=== PATIENT | female | born 1960 | race Caucasian/White ===

== ENCOUNTER 2020-08-03 18:30 | Inpatient (IN) ==
[2020-08-03] MEDS ORDERED: AZITHROMYCIN 250 MG TABLET PO ONE (20:00)
[2020-08-03] MEDS ORDERED: AZITHROMYCIN 250 MG TABLET ONE (21:24)
[2020-08-03] MEDS: DEXAMETHASONE SODIUM PHOSP/PF 10 MG/ML VIAL IV SCH (21:31)
[2020-08-03] MEDS: PANTOPRAZOLE SODIUM 40 MG in NORMAL SALINE 100 ML IV SCH (21:32)
[2020-08-03] MEDS: ENOXAPARIN SODIUM 40 MG/0.4 ML SYRG SC SCH (21:32)
--- NOTE | 2020-08-03 21:32 | HP ---
Chief Complaint - Chief Complaint Date of Service: 08/03/20 Time of Service: 21:31 Chief Complaint: Shortness of breath, productive sputum, COVID19 History of Present Illness: Priscila is a 60 yo female that began having cough and fever on 07/24, she was diagnosed with covid19 and treated with prednisone and cough medicine. She reports she continued to have daily fever and cough. In the last 24 hours she has begun having brown productive sputum and more shortness of breath. She presented to [facility] and chest xray showed bilateral infiltrates and she was hypoxic in the 80s. She was placed on oxygen at 3lpm via NC to keep sats above 90%. [facility] had no COVID bed availability and called our facility for admission. Medical History (Last Updated 08/03/20 @ 19:39 by Allyson Rogel RN) delivery affecting Surgical History: Surgical History (Last Updated 08/03/20 @ 19:40 by Allyson Rogel RN) H/O breast biopsy Hx of breast reduction, elective Family History: Family History (Last Updated 08/03/20 @ 19:43 by Allyson Rogel RN) Father Cancer Hypertension Brother Cancer Social History: (Last Updated 08/03/20 @ 19:45 by Allyson Rogel RN) Social History: adopted: No foster care: No daycare: no daycare chcf: No Marital status: lives independently: Yes household members: spouse number of children: 1 caregiver/support person: Yes caregiver/support person comment: parent marital status: current occupational status: employed Review Of Systems (GEN) - Review of Systems Generalized/Overall Review: Present: Chills, Fever. Absent: Weakness EENTM: Present: No Symptoms Reported Respiratory: Present: Cough, Shortness of Breath Cardiac: Absent: Chest Pain, Edema Abdominal: Absent: Nausea, Vomiting, Abdominal Pain Genitourinary: Absent: Burning, Frequency Musculoskeletal: Present: No Symptoms Reported Neurological: Present: No Symptoms Reported Skin: Present: No Symptoms Reported Endocrine: Present: No Symptoms Reported Allergies/Adverse Reactions: Allergies Allergy/AdvReac Type Severity Reaction Status Date / Time Penicillins Allergy Mild Verified 08/03/20 19:46 ciprofloxacin [From Cipro] Allergy Verified 08/03/20 19:46 Home Medications: HOME MEDICATIONS Albuterol Sulfate [Albuterol Sulfate 2.5 MG/0.5ML] 1 vial INHALATION Q4H PRN 08/03/20 [Last Taken Unknown] Atorvastatin Calcium 10 mg PO DAILY 08/03/20 [Last Taken Unknown] Gabapentin 300 mg PO HS 08/03/20 [Last Taken Unknown] Methylphenidate HCl [Ritalin] 20 mg PO BID PRN 08/03/20 [Last Taken Unknown] Montelukast Sodium 10 mg PO DAILY 08/03/20 [Last Taken Unknown] Omeprazole 40 mg PO DAILY 08/03/20 [Last Taken Unknown] Oxybutynin Chloride [Ditropan] 5 mg PO BID 08/03/20 [Last Taken Unknown] Prednisolone 20 mg PO DAILY 08/03/20 [Last Taken 08/03/20 08:00] Vit D3-Vit K/Berberine/Hops 2,000 mg PO DAILY 08/03/20 [Last Taken Unknown] Exam - Exam Vital Signs: Vital Signs - Last Taken Pulse 80 08/03/20 18:51 Resp 18 08/03/20 18:51 BP 149/97 H 08/03/20 18:51 Pulse Ox 100 08/03/20 18:51 Constitutional: Present: Alert, Cooperative, Well nourished ENT Exam: Present: hearing grossly normal Eye Exam: bilateral eye: normal inspection Respiratory: Present: no respiratory distress, crackles - bilateral lateral aspects Cardiovascular/Chest: Present: no murmur, tachycardia Peripheral Pulses: radial (R): 2+, radial (L): 2+ Abdomen: Present: Normal bowel sounds, soft, nontender, no hepatospenomegaly Extremity: Present: normal inspection Skin Exam: Present: normal color, warm/dry, no cyanosis Lymphatic: Present: no adenopathy Neurologic: Present: alert, normal mood/affect, oriented x 3 Appearance: Present: appropriate appearance, appropriate insight Assessment/Plan - Narrative Narrative: Priscila is a 60 yo female with acute respiratory failure requiring 3lpm of oxygen via NC to keep sats >90% due to bilateral bacterial pneumonia secondary to COVID19. Treating with azithromycin, rocephin, IV dexamethason, and oxygen. Will attempt to wean from oxygen. Expect >2 midnights to initiate sneha tment, monitor for response, and wean from oxygen. - Assessment/Plan (1) Acute respiratory failure with hypoxia Problem: Acute (2) Secondary bacterial pneumonia Problem: Acute (3) COVID-19 virus infection Problem: Acute (4) Multiple sclerosis Problem: Acute
[2020-08-04] MEDS: DEXAMETHASONE SODIUM PHOSP/PF 10 MG/ML VIAL IV SCH (09:22)
[2020-08-04] MEDS: ACETAMINOPHEN 500 MG TABLET PO PRN ×2 (09:23→17:57)
[2020-08-04] MEDS: ENOXAPARIN SODIUM 40 MG/0.4 ML SYRG SC SCH (19:38)
[2020-08-04] MEDS: PANTOPRAZOLE SODIUM 40 MG in NORMAL SALINE 100 ML IV SCH (19:38)
[2020-08-04] MEDS: AZITHROMYCIN 250 MG TABLET PO SCH (20:06)
--- NOTE | 2020-08-04 23:22 | PN ---
Subjective - Date and Time Seen Date: 08/04/20 Time: 08:30 Subjective Narrative: Priscila reports feeling the same. Still short of breath and having productive sputum. No fever or chills. Still needing 3lpm of oxygen via NC. Objective - Vitals Vitals: Last Vital Signs Temp 36.4 C 08/04/20 19:00 Pulse 69 08/04/20 19:00 Resp 20 08/04/20 19:00 BP 143/76 08/04/20 19:00 Pulse Ox 100 08/04/20 19:00 - Exam Constitutional: Present: Alert, Oriented x3, Cooperative, No distress ENT Exam: Present: hearing grossly normal Respiratory: Present: crackles - lateral aspect of each lung Cardiovascular/Chest: Present: regular rate, rhythm, no murmur Abdomen: Present: Normal bowel sounds, soft, nontender, nondistended Appearance: Present: appropriate appearance, appropriate insight Eye contact: Present: cooperative, good eye contact, normal speech Thoughts: Present: normal thought pattern, no apparent hallucination Assessment/Plan Plan Narrative: Continue treatment of acute respiratory failure with hypoxia secondary to COVID19 with secondary bacterial infection. Condition is stable. No changes today. Continue azithromycin, rocephin, dexamthasone, and oxygen. Attempt to wean oxygen as able. - Problems/Diagnosis (1) Acute respiratory failure with hypoxia Problem: Acute (2) Secondary bacterial pneumonia Problem: Acute (3) COVID-19 virus infection Problem: Acute (4) Multiple sclerosis Problem: Acute
[2020-08-05] MEDS: ACETAMINOPHEN 500 MG TABLET PO PRN ×4 (03:00→22:35)
[2020-08-05 06:59] LABS: Hematocrit 32.7 % (37.0-47.0); Hemoglobin 10.9 gm/dL (12.5-16.0); Mean Cell Volume 88.1 fl (78-100); Mean Corpuscular Hemoglobin 29.4 pg (27-31); Mean Corpuscular Hgb Conc 33.3 g/dl (32-36); Mean Platelet Volume 10.1 fl (8-12.5); Neutrophil # 10.5 K/mm3 (1.3-6.0); Neutrophil % 81.1 % (42-75.0); Platelet Count 146 K/mm3 (150-450); Red Blood Count 3.71 M/mm3 (4.2-5.4); Red Cell Distribution Width 13.5 % (11.5-14.0)
[2020-08-05 07:18] LABS: Albumin * 2.7 gm/dl (3.4-5.0); Anion Gap 14.5 mmol/L (6.8-13.8); BUN/Creatinine Ratio 18.8 (9.0-21.6); Bilirubin, Total 0.4 mg/dL (0.0-1.1); Ca. Corrected For Albumin 9.5 mg/dL (8.4-10.2); Calcium * 8.8 mg/dL (7.9-10.9); Carbon Dioxide 23.1 mmol/L (24-32.6); Potassium 3.6 mmol/L (3.4-4.6); Total Protein 6.4 gm/dL (6.2-8.2)
[2020-08-05] MEDS: DEXAMETHASONE SODIUM PHOSP/PF 10 MG/ML VIAL IV SCH (08:01)
[2020-08-05] MEDS ORDERED: METHYLPHENIDATE HCL 5 MG TABLET PO PRN (11:26)
[2020-08-05] MEDS ORDERED: KETOROLAC TROMETHAMINE 30 MG/ML VIAL IV ONE (11:28)
--- NOTE | 2020-08-05 11:29 | PN ---
Subjective - Date and Time Seen Date: 08/05/20 Time: 11:29 Objective - Vitals Vitals: Last Vital Signs Temp 37.3 C 08/05/20 10:31 Pulse 59 L 08/05/20 10:31 Resp 17 08/05/20 10:31 BP 148/74 08/05/20 10:31 Pulse Ox 94 08/05/20 10:31 - Abnormal Lab Findings Abnormal Lab Findings: Abnormal Lab Results 08/05/20 08/05/20 Range/Units 06:50 06:50 WBC 13.0 H (4.0-10.5) K/mm3 RBC 3.71 L (4.2-5.4) M/mm3 Hgb 10.9 L (12.5-16.0) gm/dL Hct 32.7 L (37.0-47.0) % Plt Count 146 L (150-450) K/mm3 Immature Gran % (Auto) 1.50 H (0.001-0.429) % Immature Gran # (Auto) 0.20 H (0.000-0.0310) K/mm3 Neutrophils % 81.1 H (42-75.0) % Lymphocytes % 12.2 L (20-51) % Neutrophils # 10.5 H (1.3-6.0) K/mm3 Chloride 107 H (97-106) mmol/L Carbon Dioxide 23.1 L (24-32.6) mmol/L Anion Gap 14.5 H (6.8-13.8) mmol/L Est GFR (Non-Af Amer) 59 L (60-130) mL/min Random Glucose 113 H (70-110) mg/dL Albumin 2.7 L (3.4-5.0) gm/dl
[2020-08-05] MEDS: PANTOPRAZOLE SODIUM 40 MG TABLET.EC PO SCH (14:08)
[2020-08-05] MEDS: ENOXAPARIN SODIUM 40 MG/0.4 ML SYRG SC SCH (21:08)
[2020-08-05] MEDS: GABAPENTIN 300 MG CAPSULE PO SCH (21:08)
[2020-08-05] MEDS: OXYBUTYNIN CHLORIDE 5 MG TABLET PO SCH (21:08)
[2020-08-05] MEDS: AZITHROMYCIN 250 MG TABLET PO SCH (21:08)
--- NOTE | 2020-08-05 23:42 | PN ---
Subjective - Date and Time Seen Date: 08/05/20 Time: 10:35 Subjective Narrative: Resting in bed. Some shortness of breath, cough. Feels achy, has some back pain. Desatted overnight, required non-rebreather to bring sats up. Currently satting well, no fevers. Objective - Review of Systems Generalized/Overall Review: Denies: Weakness, Chills, Fever EENTM: Reports: No Symptoms Reported Respiratory: Reports: Cough, Shortness of Breath Cardiac: Denies: Chest Pain, Edema Abdominal: Denies: Nausea, Vomiting, Abdominal Pain Musculoskeletal Complaints: Reports: Back Pain - Vitals Vitals: Last Vital Signs Temp 36.4 C 08/05/20 21:30 Pulse 70 08/05/20 21:30 Resp 24 H 08/05/20 21:30 BP 139/85 08/05/20 21:30 Pulse Ox 96 08/05/20 21:30 - Abnormal Lab Findings Abnormal Lab Findings: Abnormal Lab Results 08/05/20 08/05/20 Range/Units 06:50 06:50 WBC 13.0 H (4.0-10.5) K/mm3 RBC 3.71 L (4.2-5.4) M/mm3 Hgb 10.9 L (12.5-16.0) gm/dL Hct 32.7 L (37.0-47.0) % Plt Count 146 L (150-450) K/mm3 Immature Gran % (Auto) 1.50 H (0.001-0.429) % Immature Gran # (Auto) 0.20 H (0.000-0.0310) K/mm3 Neutrophils % 81.1 H (42-75.0) % Lymphocytes % 12.2 L (20-51) % Neutrophils # 10.5 H (1.3-6.0) K/mm3 Chloride 107 H (97-106) mmol/L Carbon Dioxide 23.1 L (24-32.6) mmol/L Anion Gap 14.5 H (6.8-13.8) mmol/L Est GFR (Non-Af Amer) 59 L (60-130) mL/min Random Glucose 113 H (70-110) mg/dL Albumin 2.7 L (3.4-5.0) gm/dl - Exam Constitutional: Present: Alert, Oriented x3, Cooperative, Overweight ENT Exam: Present: hearing grossly normal. Absent: nasal congestion, nasal drainage Neck: Present: non-tender, supple Respiratory: Present: lungs clear, normal breath sounds Cardiovascular/Chest: Present: regular rate, rhythm, no murmur Abdomen: Present: soft, nondistended Skin Exam: Present: normal color, warm/dry Appearance: Present: appropriate appearance, appropriate insight Eye contact: Present: cooperative, good eye contact Thoughts: Present: normal thought pattern Assessment/Plan Plan Narrative: Patient currentlty having SOB, hypoxia, cough. Improving. She is on abx for suspected bacterial pna as well. Her sats are improving, will wean as tolerating. Toradol orederd for body aches, pain. Kidney function appropriate. Continue current tx plan, steroids. Nurse to call with questions or concerns. - Problems/Diagnosis (1) COVID-19 virus infection Problem: Acute (2) Acute respiratory failure with hypoxia Problem: Acute (3) Secondary bacterial pneumonia Problem: Acute
[2020-08-06] MEDS: PANTOPRAZOLE SODIUM 40 MG TABLET.EC PO SCH (07:20)
[2020-08-06] MEDS: ACETAMINOPHEN 500 MG TABLET PO PRN ×3 (07:48→20:32)
[2020-08-06] MEDS: ROSUVASTATIN CALCIUM 10 MG TABLET PO SCH (09:01)
[2020-08-06] MEDS: MONTELUKAST SODIUM 10 MG TABLET PO SCH (09:01)
[2020-08-06] MEDS: OXYBUTYNIN CHLORIDE 5 MG TABLET PO SCH ×3 (09:01→20:31)
[2020-08-06] MEDS: DEXAMETHASONE SODIUM PHOSP/PF 10 MG/ML VIAL IV SCH (09:02)
[2020-08-06 09:53] LABS: Hematocrit 34.1 % (37.0-47.0); Hemoglobin 11.1 gm/dL (12.5-16.0); Mean Cell Volume 88.3 fl (78-100); Mean Corpuscular Hemoglobin 28.8 pg (27-31); Mean Corpuscular Hgb Conc 32.6 g/dl (32-36); Mean Platelet Volume 9.8 fl (8-12.5); Neutrophil # 10.1 K/mm3 (1.3-6.0); Neutrophil % 79.7 % (42-75.0); Platelet Count 172 K/mm3 (150-450); Red Blood Count 3.86 M/mm3 (4.2-5.4); Red Cell Distribution Width 13.7 % (11.5-14.0); White Blood Count 12.7 K/mm3 (4.0-10.5)
[2020-08-06 10:07] LABS: Anion Gap 14.4 mmol/L (6.8-13.8); Carbon Dioxide 23.3 mmol/L (24-32.6); Estimated Creat Clear 65.4; Potassium 3.7 mmol/L (3.4-4.6)
[2020-08-06] MEDS: ENOXAPARIN SODIUM 40 MG/0.4 ML SYRG SC SCH ×2 (12:21→23:41)
[2020-08-06] MEDS ORDERED: KETOROLAC TROMETHAMINE 30 MG/ML VIAL IV ONE (16:44)
[2020-08-06] MEDS: AZITHROMYCIN 250 MG TABLET PO SCH (19:39)
[2020-08-06] MEDS: GABAPENTIN 300 MG CAPSULE PO SCH (20:26)
--- NOTE | 2020-08-06 20:39 | PN ---
Subjective - Date and Time Seen Date: 08/06/20 Time: 15:24 Subjective Narrative: Patient has been mildly distressed from a respiratory stand point most of the day. She required a nonrebreather mask to maintain sats but was weaned off of it as tolerated. Currently on 2 L NC sating in mid s. She states that she feels "like crap" but understands this is part of the process. Beside being a little hypoxic (fairly significant this morning) this afternoon, her only other concern is her body aches. Toradol has helped but she would like something more scheduled. Otherwise she has no other concerns and she has been afebrile. Objective - Review of Systems Generalized/Overall Review: Denies: Weakness, Chills, Fever EENTM: Reports: No Symptoms Reported Respiratory: Reports: Cough, Shortness of Breath Cardiac: Denies: Chest Pain, Edema, Palpitations Abdominal: Reports: No Symptoms Reported Genitourinary Symptoms: Reports: No Symptoms Reported Musculoskeletal Complaints: Reports: Back Pain, Other - body aches - Vitals Vitals: Last Vital Signs Temp 36.7 C 08/06/20 19:13 Pulse 61 08/06/20 19:13 Resp 28 H 08/06/20 19:13 BP 164/90 H 08/06/20 19:13 Pulse Ox 95 08/06/20 19:13 - Abnormal Lab Findings Abnormal Lab Findings: Abnormal Lab Results 08/06/20 08/06/20 Range/Units 09:26 09:47 WBC 12.7 H (4.0-10.5) K/mm3 RBC 3.86 L (4.2-5.4) M/mm3 Hgb 11.1 L (12.5-16.0) gm/dL Hct 34.1 L (37.0-47.0) % Immature Gran % (Auto) 2.40 H (0.001-0.429) % Immature Gran # (Auto) 0.31 H (0.000-0.0310) K/mm3 Neutrophils % 79.7 H (42-75.0) % Lymphocytes % 12.0 L (20-51) % Neutrophils # 10.1 H (1.3-6.0) K/mm3 Chloride 107 H (97-106) mmol/L Carbon Dioxide 23.3 L (24-32.6) mmol/L Anion Gap 14.4 H (6.8-13.8) mmol/L BUN 24 H (3-23) mg/dL BUN/Creatinine Ratio 27.0 H (9.0-21.6) - Exam Constitutional: Present: Alert, Oriented x3, Cooperative Respiratory: Present: lungs clear, normal breath sounds, no respiratory distress - currently Cardiovascular/Chest: Present: regular rate, rhythm, no murmur Abdomen: Present: soft, nontender Skin Exam: Present: normal color, warm/dry Neurologic: Present: alert, oriented x 3 Appearance: Present: appropriate appearance, appropriate insight Eye contact: Present: cooperative, good eye contact Thoughts: Present: normal thought pattern, normal mood /affect Assessment/Plan Plan Narrative: Patient with hypoxia this morning, significantly improved currently. Maintaining sats with just o2 via NC. Continue to monitor, administer oxygen as needed to keep sats greater then 92%. Ibuprofen added, scheduled. Continue Tylenol as well for aches/discomfort. She is on rocephen and azithromycin for superimporsed PNA, continue. Repeat CBC and CMP in the AM. She is on lovenox BID as for DVT ppx. Reg diet ordered. Nurse to call with questions or concerns. - Problems/Diagnosis (1) COVID-19 virus infection Problem: Acute (2) Acute respiratory failure with hypoxia Problem: Acute (3) Secondary bacterial pneumonia Problem: Acute
[2020-08-07] MEDS: IBUPROFEN 600 MG TABLET PO PRN ×3 (02:17→20:26)
[2020-08-07] MEDS: ACETAMINOPHEN 500 MG TABLET PO PRN ×2 (04:46→15:10)
[2020-08-07] MEDS: PANTOPRAZOLE SODIUM 40 MG TABLET.EC PO SCH (07:39)
[2020-08-07 08:01] LABS: Hematocrit 34.8 % (37.0-47.0); Hemoglobin 11.4 gm/dL (12.5-16.0); Mean Cell Volume 88.3 fl (78-100); Mean Corpuscular Hemoglobin 28.9 pg (27-31); Mean Corpuscular Hgb Conc 32.8 g/dl (32-36); Platelet Count 213 K/mm3 (150-450); Red Blood Count 3.94 M/mm3 (4.2-5.4); Red Cell Distribution Width 13.5 % (11.5-14.0); White Blood Count 13.7 K/mm3 (4.0-10.5)
[2020-08-07 08:07] LABS: Albumin * 2.5 gm/dl (3.4-5.0); Anion Gap 14.8 mmol/L (6.8-13.8); Bilirubin, Total 0.6 mg/dL (0.0-1.1); Ca. Corrected For Albumin 9.9 mg/dL (8.4-10.2); Carbon Dioxide 23.8 mmol/L (24-32.6); Potassium 3.6 mmol/L (3.4-4.6); Total Protein 6.3 gm/dL (6.2-8.2)
[2020-08-07 08:09] LABS: Total Cells Counted 100
[2020-08-07 08:20] LABS: Lymphocyte 15 % (20-51); Monocyte 4 % (0-9); Neutrophil 81 % (42-75); Neutrophil # 11.1 K/mm3 (1.3-6.0); Platelet Estimate Normal (NORMAL)
[2020-08-07 08:21] LABS: RBC Morphology Normal (NORMAL)
[2020-08-07] MEDS: ROSUVASTATIN CALCIUM 10 MG TABLET PO SCH (08:56)
[2020-08-07] MEDS: MONTELUKAST SODIUM 10 MG TABLET PO SCH (08:56)
[2020-08-07] MEDS: DEXAMETHASONE SODIUM PHOSP/PF 10 MG/ML VIAL IV SCH (08:56)
[2020-08-07] MEDS: OXYBUTYNIN CHLORIDE 5 MG TABLET PO SCH ×2 (09:30→20:01)
[2020-08-07] MEDS: IPRATROPIUM/ALBUTEROL SULFATE 120 PUFF INHALER IH SCH ×3 (10:41→20:48)
[2020-08-07] MEDS: ENOXAPARIN SODIUM 40 MG/0.4 ML SYRG SC SCH ×2 (14:15→23:28)
[2020-08-07] MEDS: AZITHROMYCIN 250 MG TABLET PO SCH (19:31)
[2020-08-07] MEDS: GABAPENTIN 300 MG CAPSULE PO SCH (20:27)
[2020-08-08] MEDS: IPRATROPIUM/ALBUTEROL SULFATE 120 PUFF INHALER IH SCH (04:16)
[2020-08-08] MEDS: PANTOPRAZOLE SODIUM 40 MG TABLET.EC PO SCH (06:40)
[2020-08-08 06:49] VITALS: BP 171/84
--- NOTE | 2020-08-08 08:51 | PN ---
Subjective - Date and Time Seen Date: 08/07/20 Time: 12:00 Subjective Narrative: Priscila is becoming more short of breath and has been placed on simple mask at 7lpm and now 8lpm. No fever, chills, nausea, or vomiting. Objective - Vitals Vitals: Last Vital Signs Selected Entries 08/07/20 10:45 Temperature 36.5 C Pulse Rate 65 Respiratory Rate 20 Blood Pressure 128/75 O2 Sat by Pulse Oximetry 92 L Oxygen Delivery Method Mask (Simple) Oxygen Flow Rate 8 - Exam Constitutional: Present: Alert, Oriented x3, Cooperative ENT Exam: Present: hearing grossly normal Respiratory: Present: crackles - left and right lateral airspace Cardiovascular/Chest: Present: regular rate, rhythm, no murmur Abdomen: Present: Normal bowel sounds, soft, nontender, nondistended Skin Exam: Present: normal color, warm/dry, no cyanosis Assessment/Plan Plan Narrative: Priscila's condition is worsening. She is requiring more oxygen. She has gone from 3lpm yesterday to simple mask requiring now 8lpm. She is on azithromycin, rocephin, dexamethasone. Will try working with cornet, incentive spirometer, and combivent to get improved oxygenation. - Problems/Diagnosis (1) Acute respiratory failure with hypoxia Problem: Acute (2) Secondary bacterial pneumonia Problem: Acute (3) COVID-19 virus infection Problem: Acute (4) Multiple sclerosis Problem: Acute
--- NOTE | 2020-08-08 09:01 | DS ---
Transfer Discharge Summary - Diagnosis(s)/Problems (1) Acute respiratory failure with hypoxia Problem: Acute (2) Secondary bacterial pneumonia Problem: Acute (3) COVID-19 virus infection Problem: Acute (4) Multiple sclerosis Problem: Acute - Course Description of Stay: Priscila is a 60 yo female who first had symptoms of COVID19 on 07/24/20. She was tested on 07/25/20, which ultimately came back positive for COVID19. She did not have shortness of breath and her oxygen levels were normal so she isolated at home. But she began to get more and more short of breath and presented to the [facility] ER and was found to be hypoxic requiring 3lpm of oxygen to keep sats >90%. She had a chest xray there that showed bilateral pneumonia. [facility] did not have any available COVID19 beds at their facility and requested transfer to our facility. She arrived on 3lpm of oxygen via NC. She was treated with azithromycin, rocephin, and IV dexamethasone 6mg daily starting on 08/03/20. She was stable for the first few days remaining on 3lpm, but over the last 24 hours she was advanced to a simple mask gradually needing more oxygen flow. Overnight she has advanced to requiring non-rebreather at 15lpm. She is currently 90% on this, but I have concerns with her rapid decline that she will need more positive pressure ventilation which we are not equipped to deal with for a covid19 patient in our facility. I discussed transfer with Dr. Lee at [facility] who accepted her transfer. Procedures Performed: none - Medications Medications: Active Medications Acetaminophen (Tylenol) 1,000 mg PO Q6H PRN PRN Reason: Mild pain (pain scale 1-3) Stop: 09/03/20 08:12 Last Admin: 08/07/20 15:10 Dose: 1,000 mg Documented by: Albuterol/Ipratropium (Combivent Respimat 20-100 Mcg) 1 puff IH Q6H [facility] Stop: 09/06/20 09:46 Last Admin: 08/08/20 04:16 Dose: 1 puff Documented by: Dexamethasone Sodium Phosphate (Dexamethasone) 6 mg IV DAILY [facility] Stop: 09/02/20 19:01 Last Admin: 08/07/20 08:56 Dose: 6 mg Documented by: Enoxaparin Sodium (Lovenox) 40 mg SC Q12H [facility] Stop: 09/05/20 11:31 Last Admin: 08/07/20 23:28 Dose: 40 mg Documented by: Gabapentin (Neurontin) 300 mg PO HS [facility] Stop: 09/04/20 21:01 Last Admin: 08/07/20 20:27 Dose: 300 mg Documented by: Ceftriaxone Sodium 1,000 mg/ (Dextrose/Water) 100 mls @ 200 mls/hr IV Q24H [facility]; Protocol Stop: 09/02/20 20:01 Last Infusion: 08/07/20 20:00 Dose: Infused Documented by: Ibuprofen (Motrin) 600 mg PO Q6H PRN PRN Reason: Pain Stop: 09/05/20 20:24 Last Admin: 08/07/20 20:26 Dose: 600 mg Documented by: Montelukast Sodium (Singulair) 10 mg PO DAILY [facility] Stop: 09/05/20 09:01 Last Admin: 08/07/20 08:56 Dose: 10 mg Documented by: Oxybutynin Chloride (Ditropan) 5 mg PO BID [facility] Stop: 09/04/20 21:01 Last Admin: 08/07/20 20:01 Dose: Not Given Documented by: Pantoprazole Sodium (Protonix) 40 mg PO DAILY@0700 [facility] Stop: 09/04/20 07:01 Last Admin: 08/08/20 06:40 Dose: 40 mg Documented by: Rosuvastatin Calcium (Crestor) 5 mg PO DAILY [facility] Stop: 09/05/20 09:01 Last Admin: 08/07/20 08:56 Dose: 5 mg Documented by: Discontinued Medications Azithromycin (Zithromax) 500 mg PO ONCE ONE; Protocol Stop: 08/03/20 20:01 Last Admin: 08/03/20 21:33 Dose: 500 mg Documented by: Azithromycin (Zithromax) 250 mg PO Q24H [facility]; Protocol Stop: 08/07/20 20:01 Last Admin: 08/07/20 19:31 Dose: 250 mg Documented by: Enoxaparin Sodium (Lovenox) 40 mg SC Q24H [facility] Stop: 09/02/20 19:01 Last Admin: 08/05/20 21:08 Dose: 40 mg Documented by: Pantoprazole Sodium 40 mg/ (Sodium Chloride) 100 mls @ 400 mls/hr IV Q24H [facility]ICAELA Stop: 09/02/20 19:01 Last Infusion: 08/04/20 19:53 Dose: Infused Documented by: Ketorolac Tromethamine (Toradol) 30 mg IV ONCE ONE Stop: 08/05/20 11:29 Last Admin: 08/05/20 11:59 Dose: 30 mg Documented by: Ketorolac Tromethamine (Toradol) 30 mg IV ONCE ONE Stop: 08/06/20 16:45 Last Admin: 08/06/20 16:49 Dose: 30 mg Documented by: - Disposition Disposition: Home self-care Condition: Critical Discharge Date: 08/08/20 Discharge Time: 09:00
[2020-08-08] MEDS ORDERED: LORazepam 0.5 MG TABLET PO ONE (09:24)
[2020-08-08] MEDS ORDERED: LORazepam 0.5 MG TABLET ONE (09:36)
== END 2020-08-08 09:45 | disposition short-term general hospital (02) | DRG 177 ==
LOC: MS 18:30
PROVIDERS: ADMIT Family Medicine; ATTEND Family Medicine